=== PATIENT | male | born 2000 | race Caucasian/White ===

== ENCOUNTER 2021-02-26 08:34 | Emergency (ER) | payer BC ==
--- NOTE | 2021-02-26 08:50 | ER ---
Nurse's Notes [facility] Name: Alvaro Hogan Age: 20 yrs Sex: Male : 2000 Arrival Date: 02/26/2021 Time: 08:35 Bed 12 Private MD: Diagnosis: Cracked tooth Presentation: 02/26 08:41 Chief complaint: Patient states: Broke left lower molar yesterday, reports pain 8/10, jl7 unable to sleep. Coronavirus screen: Client denies travel out of the [place] in the last 14 days. At this time, the client does not indicate any symptoms associated with coronavirus-19. Ebola Screen: No symptoms or risks identified at this time. Initial Sepsis Screen: Does the patient meet any 2 criteria? No. Patient's initial sepsis screen is negative. Does the patient have a suspected source of infection? No. Patient's initial sepsis screen is negative. Risk Assessment: Do you want to hurt yourself or someone else? Patient reports no desire to harm self or others. Onset of symptoms was February 25, 2021. 08:41 Method Of Arrival: Ambulatory jl7 08:41 Acuity: NEHEMIAS 4 jl7 Triage Assessment: 08:42 General: Appears in no apparent distress. uncomfortable, Behavior is calm, cooperative, jl7 appropriate for age. Pain: Complains of pain in lower left third molar Pain currently is 8 out of 10 on a pain scale. EENT: Reports pain Pain is 8 out of 10 on a pain scale. Historical: - Allergies: 08:42 No Known Allergies; jl7 - Home Meds: 08:42 None [Active]; jl7 - PMHx: 08:42 None; jl7 - PSHx: 08:42 None; jl7 - Immunization history:: Adult Immunizations unknown, Client reports having NOT received the Covid vaccine. - Social history:: Smoking status: Patient reports use of chewing tobacco. Screenin:56 Abuse screen: Denies threats or abuse. Denies injuries from another. Nutritional jl7 screening: No deficits noted. Tuberculosis screening: No symptoms or risk factors identified. Fall Risk None identified. Vital Signs: 08:41 BP 149 / 93; Pulse 86; Resp 17; Temp 98.1; Pulse Ox 99% ; Weight 72.57 kg; Height 5 ft. jl7 9 in. (175.26 cm); Pain 8/10; 08:41 Body Mass Index 23.63 (72.57 kg, 175.26 cm) jl7 ED Course: 08:35 Patient arrived in ED. as 08:42 Triage completed. jl7 08:42 Arm band placed on right wrist. jl7 08:43 Farnaz Dye RN is Primary Nurse. jl7 08:43 Mallory Cowan FNP-C is [facility]. kb 08:43 Andriy Gamboa MD is Attending Physician. kb 08:56 Patient has correct armband on for positive identification. jl7 08:56 No provider procedures requiring assistance completed. Patient did not have IV access jl7 during this emergency room visit. Administered Medications: 08:51 Drug: Viscous Lidocaine Liquid (4 %) 5 ml Route: Mucous Membrane; jl7 08:51 Follow up: Response: Medication administered at discharge. jl7 08:52 Drug: HYDROcodone-acetaminophen 5 mg-325 mg 1 tabs Route: PO; jl7 08:52 Follow up: Response: Medication administered at discharge. jl7 Outcome: 08:50 Discharge ordered by MD. kb 08:56 Discharged to home ambulatory. jl7 08:56 Condition: stable 08:56 Discharge instructions given to patient, Instructed on discharge instructions, follow up and referral plans. Demonstrated understanding of instructions, follow-up care. 08:56 Patient left the ED. jl7 Signatures: Mallory Cowan FNP-C FNP-Cecille Arrieta as Farnaz Dye RN RN jl7
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
[2021-02-26] MEDS ORDERED: HYDROCODONE/APAP 5/325 MG TAB ONE (09:11)
[2021-02-26] MEDS ORDERED: LIDOCAINE VISCOUS 2% SOLN 15 ML UDC ONE (09:11)
[2021-02-26 09:17] VITALS: BP 149/93; TEMP 98.1; O2SAT 99
== END 2021-02-26 08:56 | disposition home or self-care (01) ==
LOC: ER 08:34
DX: K03.81 Cracked tooth (principal); F17.220 Nicotine dependence, chewing tobacco, uncomplicated
CPT/HCPCS: 99283

== ENCOUNTER 2021-05-09 17:45 | Emergency (ER) | payer BC ==
[2021-05-09] MEDS ORDERED: IBUPROFEN 400 MG TAB ONE (18:29)
[2021-05-09] MEDS ORDERED: IBUPROFEN 200 MG TAB PO ONE (18:29)
[2021-05-09 19:13] LABS: SARS-COV-2 RT PCR POSITIVE (NEGATIVE)
--- NOTE | 2021-05-09 19:23 | ER ---
Nurse's Notes [facility] Name: Alvaro Hogan Age: 20 yrs Sex: Male : 2000 Arrival Date: 05/09/2021 Time: 17:48 Bed 23 Private MD: Diagnosis: Coronavirus infection, unspecified Presentation: 05/09 17:59 Chief complaint: Patient states: Cough and Cold symptoms with fever 103.0. [facility] 17:59 Coronavirus screen: Vaccine status: Patient reports being unvaccinated. Ebola Screen: [facility] Patient negative for fever greater than or equal to 101.5 degrees Fahrenheit, and additional compatible Ebola Virus Disease symptoms Patient denies exposure to infectious person. Patient denies travel to an Ebola-affected area in the 21 days before illness onset. Initial Sepsis Screen: Does the patient meet any 2 criteria? No. Patient's initial sepsis screen is negative. Does the patient have a suspected source of infection? No. Patient's initial sepsis screen is negative. Risk Assessment: Do you want to hurt yourself or someone else? Patient reports no desire to harm self or others. Onset of symptoms was May 05, 2021. 17:59 Method Of Arrival: Ambulatory [facility] 17:59 Acuity: NEHEMIAS 4 5 Triage Assessment: 17:59 General: Appears in no apparent distress. General: Behavior is calm, cooperative. Pain: 5 Denies pain. Historical: - Allergies: 18:04 No Known Allergies; 5 - Home Meds: 18:04 None [Active]; 5 - PMHx: 18:04 None; 5 - Immunization history:: Adult Immunizations unknown, Client reports having NOT received the Covid vaccine. - Social history:: Smoking status: Patient reports the use of cigarette tobacco products, denies chronic smoking, but will smoke occasionally, Patient uses alcohol, but reports only rare drinking. Screenin:04 Abuse screen: Denies threats or abuse. Denies injuries from another. Nutritional 5 screening: No deficits noted. Tuberculosis screening: No symptoms or risk factors identified. 18:12 Fall Risk None identified. jt3 Assessment: 18:03 Respiratory: Reports cough that is non-productive, dry, [facility] 18:12 Reassessment: Patient reports cough for 3 days with post nasal drip. Denies SOB, but jt3 endorses chest tightness. . Vital Signs: 17:59 BP 138 / 86; Pulse 114; Resp 20; Temp 103(O); Pulse Ox 98% on R/A; Weight 68.04 kg; 5 Height 5 ft. 9 in. (175.26 cm); 18:13 Pulse Ox 97% on R/A; jt3 19:36 BP 123 / 62; Pulse 99; Resp 16 S; Temp 100.4(O); Pulse Ox 97% on R/A; Pain 2/10; sj1 17:59 Body Mass Index 22.15 (68.04 kg, 175.26 cm) 5 ED Course: 17:48 Patient arrived in ED. ds1 17:58 Mallory Cowan FNP-C is [facility]. kb 17:58 Garima Lei MD is Attending Physician. kb 17:59 Arm band placed on. 5 18:01 Bishnu Pérez, RN is Primary Nurse. jt3 18:02 Triage completed. 5 18:12 Patient has correct armband on for positive identification. Bed in low position. Call jt3 light in reach. Side rails up X2. 18:12 No provider procedures requiring assistance completed. jt3 19:36 Patient did not have IV access during this emergency room visit. sj1 Administered Medications: 18:07 Drug: Motrin (ibuprofen) 600 mg Route: PO; 5 19:37 Follow up: Response: Temperature is decreased sj1 Outcome: 19:23 Discharge ordered by MD. kb 19:36 Discharged to home ambulatory. sj1 19:36 Condition: stable 19:36 Discharge instructions given to patient, Instructed on discharge instructions, follow up and referral plans. Demonstrated understanding of instructions, follow-up care. 19:37 Patient left the ED. sj1 Signatures: Mallory Cowan FNP-C FNP-Ckb Sanford, Demi ds1 Vahid Eddy RN RN 5 Rita Fonseca RN RN 1 Bishnu Pérez RN RN jt3
--- NOTE | 2021-05-09 19:24 | EDPHYS ---
Physician Documentation [facility] Name: Alvaro Hogan Age: 20 yrs Sex: Male : 2000 Arrival Date: 05/09/2021 Time: 17:48 Bed 23 Private MD: ED Physician Garima Lei HPI: 05/09 18:42 This 20 yrs old Male presents to ER via Ambulatory with complaints of Cough. kb 18:42 The patient or guardian reports cough, that is intermittent, described as moderate. kb Onset: The symptoms/episode began/occurred 4 day(s) ago. Severity of symptoms: At their worst the symptoms were moderate, in the emergency department the symptoms are unchanged. Modifying factors: The symptoms are alleviated by nothing, the symptoms are aggravated by nothing. Associated signs and symptoms: Pertinent positives: fever, rhinorrhea. The patient has not experienced similar symptoms in the past. The patient has not recently seen a physician. Pt reports cough, congestion, subjective fever, and malaise for 4 days. Historical: - Allergies: 18:04 No Known Allergies; ch5 - Home Meds: 18:04 None [Active]; ch5 - PMHx: 18:04 None; ch5 - Immunization history:: Adult Immunizations unknown, Client reports having NOT received the Covid vaccine. - Social history:: Smoking status: Patient reports the use of cigarette tobacco products, denies chronic smoking, but will smoke occasionally, Patient uses alcohol, but reports only rare drinking. ROS: 18:41 Abdomen/GI: Negative for abdominal pain, nausea, vomiting, diarrhea, and constipation. kb 18:41 Constitutional: Positive for fatigue, fever, malaise. 18:41 ENT: Positive for rhinorrhea, sinus congestion. 18:41 Respiratory: Positive for cough, Negative for dyspnea on exertion, hemoptysis, orthopnea, pleurisy, shortness of breath, sputum production, wheezing. 18:41 All other systems are negative. Exam: 18:41 Constitutional: This is a well developed, well nourished patient who is awake, alert, kb and in no acute distress. Head/Face: Normocephalic, atraumatic. ENT: Moist Mucous membranes Cardiovascular: Regular rate and rhythm with a normal S1 and S2. No gallops, murmurs, or rubs. No pulse deficits. Respiratory: Respirations even and unlabored. No increased work of breathing, no retractions or nasal flaring. Skin: Warm, dry with normal turgor. Normal color. MS/ Extremity: Pulses equal, no cyanosis. Neurovascular intact. Full, normal range of motion. Neuro: Awake and alert, GCS 15, oriented to person, place, time, and situation. Moves all extremities. Normal gait. Psych: Awake, alert, with orientation to person, place and time. Behavior, mood, and affect are within normal limits. Vital Signs: 17:59 BP 138 / 86; Pulse 114; Resp 20; Temp 103(O); Pulse Ox 98% on R/A; Weight 68.04 kg; ch5 Height 5 ft. 9 in. (175.26 cm); 18:13 Pulse Ox 97% on R/A; jt3 19:36 BP 123 / 62; Pulse 99; Resp 16 S; Temp 100.4(O); Pulse Ox 97% on R/A; Pain 2/10; sj1 17:59 Body Mass Index 22.15 (68.04 kg, 175.26 cm) 5 MDM: 18:00 Patient medically screened. kb 18:41 Data reviewed: vital signs, nurses notes. Data interpreted: Pulse oximetry: on room air kb is 97 %. Interpretation: normal. 19:22 Counseling: I had a detailed discussion with the patient and/or guardian regarding: the kb historical points, exam findings, and any diagnostic results supporting the discharge/admit diagnosis, lab results, the need for outpatient follow up, a family practitioner, to return to the emergency department if symptoms worsen or persist or if there are any questions or concerns that arise at home. 05/09 19:14 Order name: COVID-19/FLU A+B; Complete Time: 19:15 EDMS Administered Medications: 18:07 Drug: Motrin (ibuprofen) 600 mg Route: PO; 5 19:37 Follow up: Response: Temperature is decreased sj1 Disposition Summary: 05/09/21 19:23 Discharge Ordered Location: Home kb Condition: Stable kb Diagnosis - Coronavirus infection, unspecified kb Followup: kb - With: Emergency Department - When: As needed - Reason: Worsening of condition Followup: kb - With: Private Physician - When: 2 - 3 days - Reason: Recheck today's complaints, Continuance of care, Re-evaluation by your physician Discharge Instructions: - Discharge Summary Sheet kb - COVID-19 kb - COVID-19 Frequently Asked Questions kb - 10 Things You Can Do to Manage Your COVID-19 Symptoms at Home - [facility] kb Forms: - Medication Reconciliation Form kb - Thank You Letter kb - Antibiotic Education kb - Prescription Opioid Use kb Addendum: 05/18/2021 22:55 Co-signature as Attending Physician, Garima Lei MD PA/CONTRACT DESIGN AGENT's history reviewed, m a2 patient interviewed, and examined. I agree with assessment and care plan and confirm the diagnosis (es) above. Signatures: Dispatcher [employer] EDMS Mallory Cowan, SENIOR GL ACCOUNTANT-C SENIOR GL ACCOUNTANT-Ckb Garima Lei MD MD ma2 Vahid Eddy RN RN ch5 Rita Fonseca RN sj1 Corrections: (The following items were deleted from the chart) 05/09 18:08 18:08 CORONAVIRUS+MR.LAB.BRZ ordered. EDMS EDMS 18:08 18:08 Influenza Screen (A \T\ B)+BA.LAB.BRZ ordered. EDMS EDMS 18:19 18:07 CORONAVIRUS+MR.LAB.BRZ ordered. EDMS EDMS 18:20 18:08 Influenza Screen (A \T\ B)+BA.LAB.BRZ ordered. EDMS EDMS
[2021-05-09 19:55] VITALS: BP 138/86; TEMP 103; O2SAT 98
== END 2021-05-09 19:37 | disposition home or self-care (01) ==
LOC: ER 17:45
DX: U07.1 COVID-19 (principal)
CPT/HCPCS: 0240U; 99283